=== PATIENT | female | born 1970 | race Caucasian/White ===

== ENCOUNTER → 2020-09-28 09:49 | Outpatient (CLI) | payer OTHER, SELFPAY ==
--- NOTE | ~2020-09-28 | MR_ITS ---
EXAMINATION: MR cervical spine wo con DATE: 09/28/2020 10:32 INDICATION: Cervical radiculopathy. TECHNIQUE: Magnetic resonance imaging (MRI) of the cervical spine was performed without intravenous c ontrast. Sequences included sagittal T2-weighted FSE, sagittal T2-weighted FS FSE, sagittal T1-weight ed FSE, axial MERGE and axial T2-weighted FSE. COMPARISON: Cervical spine radiographs dated 07/08/2012 FINDINGS: Straightening of the normal cervical lordosis. No spondylolisthesis or facet subluxation. Vertebral body heights are normal. Bone marrow signal intensity is normal. Interval progression of moderate di sc height loss at C5-C6 and C6-C7 and mild disc height loss at C4-C5. Cord signal intensity is normal . Cervical soft tissues are unremarkable. The following disc levels are specifically discussed: C2-C3: The disc does not extend beyond the endplate margin. There is no uncovertebral joint osteoarth ritis. There is mild left and moderate right facet joint osteoarthritis. There is no neural foraminal stenosis. There is no central canal stenosis. C3-C4: The disc does not extend beyond the endplate margin. There is mild right and minimal left unco vertebral joint osteoarthritis. There is mild right and moderate left facet joint osteoarthritis. The re is mild left neural foraminal stenosis. There is no central canal stenosis. C4-C5: Disc is bulging. There is moderate bilateral uncovertebral joint osteoarthritis. There is mode rate bilateral facet joint osteoarthritis. There is mild bilateral neural foraminal stenosis. There i s mild central canal stenosis with flattening of the ventral surface of the cord. C5-C6: Eccentric to the right disc bulge with annular fissure. There is moderate left and moderate to severe right uncovertebral joint osteoarthritis. There is mild bilateral facet joint osteoarthritis. There is mild left and moderate right neural foraminal stenosis. There is mild central canal stenosi s with mild indentation of the right ventral surface of the cord. C6-C7: Disc is bulging with annular fissure. There is moderate bilateral uncovertebral joint osteoart hritis. There is mild bilateral facet joint osteoarthritis. There is mild bilateral neural foraminal stenosis. There is mild central canal stenosis with mild flattening of the ventral surface of the cor d. C7-T1: The disc does not extend beyond the endplate margin. There is no uncovertebral joint osteoarth ritis. There is mild bilateral facet joint osteoarthritis. There is no neural foraminal stenosis. The re is no central canal stenosis. IMPRESSION: 1. Moderate cervical spondylosis. Reviewed, dictated and finalized at location B. ICAL THERAPY AIDE
== END ==
PROVIDERS: PCP Family Medicine; Visit Provider Physician Assistant
DX: M47.812 Spondylosis without myelopathy or radiculopathy, cervical region (principal); M25.511 Pain in right shoulder
CPT/HCPCS: 72141

== ENCOUNTER 2021-11-09 05:37 | Emergency (ER) | payer OTHER, SELFPAY ==
--- NOTE | ~2021-11-09 | CT_ITS ---
EXAMINATION: CT brain wo con EXAM DATE: 11/09/2021 06:32 INDICATION: left side headache. Onset 430 a.m. TECHNIQUE: Spiral CT of the head was performed without contrast. Axial, coronal and sagittal images were reviewed. The dose-length product (DLP) for this examination was 605.33 mGy-cm. The exposure w as tailored according to patient size, and iterative reconstruction (ASIR) was used as additional dos e reduction technique. Comparison is made to prior examination from 11/25/2010. FINDINGS: There is no acute intraparenchymal hemorrhage. No evidence of intraparenchymal brain mass lesion. No evidence of acute infarction. There is no mass effect or midline shift. The ventricles are normal in size. There are no extra-axial collections. There are no acute calvarial fractures. T he orbits are unremarkable. Soft tissue is unremarkable. The visualized sinuses and mastoid air rogerio ls are well aerated. IMPRESSION: 1. Normal head CT examination. Reviewed, dictated and finalized at location A. ONS DESIGNER
[2021-11-09 05:42] VITALS: BP 136/85; PULSE 92; RESP 20; TEMP 36.4; O2SAT 100
[2021-11-09 06:01] VITALS: BP 125/86; PULSE 78; RESP 18; O2SAT 98
--- NOTE | 2021-11-09 06:01 | ED.GENADULT ---
HPI - General Adult General Chief complaint: Headache Stated complaint: headache Time Seen by Provider: 11/09/21 05:43 History of Present Illness HPI narrative: Patient is a 51-year-old female presents the emergency department with chief complaint of headache. Patient reports she was on her way to work had sudden onset of left-sided headache. Patient reports she has nausea and vomiting reports that the pain is worse with light and improved with rest and darkness. Patient reports she has prior history of headaches but states this 1 is different and worse than her typical 1. Patient denies fever denies chills denies chest pain denies shortness of breath. Related Data Allergies Allergy/AdvReac Type Severity Reaction Status Date / Time erythromycin base Allergy Mild nausea Verified 11/09/21 05:48 Sulfa (Sulfonamide Allergy Mild Rash Verified 11/09/21 05:48 Antibiotics) codeine Allergy Unknown Skin Verified 11/09/21 05:48 Reaction morphine Allergy Unknown Skin Verified 11/09/21 05:48 Reaction sulfite Allergy Unknown Skin Verified 11/09/21 05:48 Reaction Review of Systems Review of Systems: A 10 system review of systems was completed on the patient and is negative except for what is stated in the HPI. Nursing and ancillary documentation was reviewed. [facility] Past Medical History Medical History Lateral epicondylitis of right elbow [employer] current use of therapeutic drug Obesity Social History Social History Smoking status: Never smoker Alcohol intake: current Substance use: never Substance use type: does not use Gender identity (if verbalized by the patient): Female Exam Narrative: GENERAL: Well-appearing, well-nourished, and in no acute distress. HEAD: Normocephalic, atraumatic. EYES: PERRLA and EOMI. ENT: Nares clear, no rhinorrhea or epistaxis. Mucous membranes moist. NECK: Supple. CHEST: Clear to auscultation. No respiratory distress. HEART: Regular rate and rhythm. No murmur heard. Normal peripheral pulses. ABDOMEN: Soft, nontender, nondistended, normal active bowel sounds. EXTREMITIES: Normal range of motion. No edema. SKIN: Warm, dry, no rash. NEURO: No focal deficits. Alert and oriented x3. PSYCH: Normal mood and affect. Course Vital Signs Vital signs: Vital Signs Temperature 36.4 C 11/09/21 05:42 Pulse Rate 92 11/09/21 05:42 Respiratory Rate 20 11/09/21 05:42 Blood Pressure 136/85 11/09/21 05:42 Pulse Oximetry 100 11/09/21 05:42 Temperature 36.4 C 11/09/21 05:42 Pulse Rate 78 11/09/21 06:01 Respiratory Rate 18 11/09/21 06:01 Blood Pressure 125/86 11/09/21 06:01 Pulse Oximetry 98 11/09/21 06:01 Medical Decision Making Vital Signs Vital Signs: Vital Signs Temperature 36.4 C 11/09/21 05:42 Pulse Rate 92 11/09/21 05:42 Respiratory Rate 20 11/09/21 05:42 Blood Pressure 136/85 11/09/21 05:42 Pulse Oximetry 100 11/09/21 05:42 Temperature 36.4 C 11/09/21 05:42 Pulse Rate 78 11/09/21 06:01 Respiratory Rate 18 11/09/21 06:01 Blood Pressure 125/86 11/09/21 06:01 Pulse Oximetry 98 11/09/21 06:01 Discharge Plan Discharge Clinical Impression: Headache Qualifiers: Headache type: unspecified Headache chronicity pattern: acute headache Intractability: not intractable Qualified Code(s): R51.9 - Headache, unspecified Patient Disposition: Home, Self-Care Condition: Stable Instructions: Antibiotic Form, Acute Headache (ED) Prescriptions: No Action alprazolam [Xanax] 0.25 mg tablet 0.25 mg PO TID PRN (Reason: anxiety) Qty: 30 RF: 0 valacyclovir [Valtrex] 1 gram tablet 2,000 mg PO .COMPLEX Qty: 20 RF: 0 escitalopram oxalate 10 mg tablet 10 mg PO DAILY Qty: 90 RF: 3 Hold Instructions: dec dose to 5mg x1w then stop estradiol 1 mg tablet
[2021-11-09] MEDS: PROCHLORPERAZINE EDISYLATE 10 MG/2 ML VIAL IV PUSH (06:09)
[2021-11-09] MEDS: diphenhydrAMINE HCl INJ 50 MG/ML VIAL IV PUSH (06:12)
[2021-11-09] MEDS: SODIUM CHLORIDE 0.9% IV 1,000 ML 999 ML IV CONT (06:13)
[2021-11-09] MEDS: KETOROLAC 30 MG/ML VIAL (*BKC) IV PUSH (06:14)
[2021-11-09 06:16] VITALS: BP 120/82; PULSE 80; RESP 12; O2SAT 97
--- NOTE | 2021-11-09 06:18 | PC.NURSE ---
Pt to CT at this time.
[2021-11-09 06:31] VITALS: BP 109/73; PULSE 58; RESP 13; O2SAT 97
[2021-11-09 07:53] VITALS: BP 116/89; PULSE 72; RESP 18; O2SAT 100
== END 2021-11-09 08:01 | disposition home or self-care (01) ==
PROVIDERS: Emergency Provider Emergency Medicine; PCP Family Medicine
DX: R51.9 Headache, unspecified (principal); E66.9 Obesity, unspecified; Z68.31 Body mass index [BMI] 31.0-31.9, adult
CPT/HCPCS: 70450; 96361; 96374; 96375; 99284; J0780; J1200; J1885; J7030

== ENCOUNTER 2022-04-13 14:16 | Outpatient (CLI) | payer OTHER, SELFPAY ==
--- NOTE | ~2022-04-13 | XR_ITS ---
EXAMINATION: XR chest 2V 04/13/2022 14:49 INDICATION: Pneumonia PROCEDURE: 2 view chest COMPARISON: 02/23/2011 FINDINGS: The lungs are clear. The cardiomediastinal silhouette is within normal limits. There are no pleural effusions. There is no pneumothorax suspected. IMPRESSION: 1: NO ACUTE CARDIOPULMONARY DISEASE. Reviewed, dictated and finalized at location A.
[2022-04-13 15:06] LABS: Basophils Absolute Auto 0.1 K/mm3 (0.0-0.1); Basophils Percent Auto 0.9 % (0.2-1.2); Eosinophils Absolute Auto 0.2 K/mm3 (0-0.3); Eosinophils Percent Auto 2.3 % (0-4.4); Hematocrit 39.8 % (37.0-47.0); Hemoglobin 12.8 g/dL (12.0-15.0); Immature Granulocyte Absolute 0.02 K/mm3 (0.00-0.031); Immature Granulocyte Percent A 0.3 % (0-0.5); Lymphocytes Absolute Auto 1.59 K/mm3 (0.9-3.2); Lymphocytes Percent Auto 20.5 % (18.3-44.2); Mean Corpuscular HGB Conc 32.2 g/dl (32-36); Mean Corpuscular Hemoglobin 30.3 pg (26-34); Mean Corpuscular Volume 94.1 fl (80-100); Monocytes Absolute Auto 0.5 K/mm3 (0.1-0.6); Monocytes Percent Auto 6.6 % (2.6-8.5); Neutrophils Absolute Auto 5.4 K/mm3 (1.3-6.7); Neutrophils Percent Auto 69.4 % (45.5-73.1); Platelet Count Result 256 k/mm3 (150-375); Red Blood Count 4.23 M/mm3 (4.2-5.4); Red Cell Distribution Width 13.8 % (11.5-14.5); White Blood Count 7.8 K/mm3 (4.5-10.0)
[2022-04-13 15:23] LABS: Alanine Aminotransferase 27 U/L (6-35); Albumin Level 4.4 g/dL (3.5-5.1); Alkaline Phosphatase 65 U/L (38-126); Anion Gap 5 mmol/L (8-16); Aspartate Amino Transferase 27 U/L (14-36); Bilirubin,Total 0.3 mg/dL (0.2-1.3); Blood Urea Nitrogen 11 mg/dL (7-17); Calcium 9.3 mg/dL (8.4-10.2); Carbon Dioxide 29 mmol/L (22-30); Chloride 105 mmol/L (98-107); Estimated Glomerular Filt Rate > 60; Glucose 89 mg/dL (65-110); Sodium 139 mmol/L (137-145)
== END 2022-04-13 14:17 | disposition home or self-care (01) ==
PROVIDERS: PCP Family Medicine; Visit Provider Family Medicine
DX: J18.9 Pneumonia, unspecified organism (principal); Z51.81 Encounter for therapeutic drug level monitoring; Z79.899 Other long term (current) drug therapy
CPT/HCPCS: 36415; 71046; 80053; 84443; 85025

== ENCOUNTER 2023-07-06 12:36 | Outpatient (CLI) | payer OTHER, SELFPAY ==
[2023-07-06 17:48] LABS: Thyroid Stimulating Hormone 0.319 uIU/mL (0.465-4.680)
[2023-07-11 06:38] LABS: Triiodothyronine T3 Free 3.4 pg/mL (2.3-4.2)
== END 2023-07-06 12:37 | disposition home or self-care (01) ==
LOC: ANHGOSHLAB 12:41
PROVIDERS: PCP Family Medicine; Visit Provider Nurse Practitioner Family
DX: E66.9 Obesity, unspecified (principal); Z79.899 Other long term (current) drug therapy; E03.9 Hypothyroidism, unspecified
CPT/HCPCS: 36415; 84443; 84481

== ENCOUNTER 2023-11-02 12:26 | Outpatient (CLI) | payer OTHER, SELFPAY ==
[2023-11-02 19:13] LABS: Basophils Absolute Auto 0.1 K/mm3 (0.0-0.1); Basophils Percent Auto 1.2 % (0.2-1.2); Eosinophils Absolute Auto 0.2 K/mm3 (0-0.3); Eosinophils Percent Auto 1.9 % (0-4.4); Hematocrit 43.3 % (37.0-47.0); Hemoglobin 13.6 g/dL (12.0-15.0); Immature Granulocyte Absolute 0.02 K/mm3 (0.00-0.031); Immature Granulocyte Percent A 0.3 % (0-0.5); Lymphocytes Absolute Auto 1.61 K/mm3 (0.9-3.2); Lymphocytes Percent Auto 20.9 % (18.3-44.2); Mean Corpuscular HGB Conc 31.4 g/dl (32-36); Mean Corpuscular Hemoglobin 30.5 pg (26-34); Mean Corpuscular Volume 97.1 fl (80-100); Mean Platelet Volume 11.5 fl (7.4-10.4); Monocytes Absolute Auto 0.5 K/mm3 (0.1-0.6); Monocytes Percent Auto 6.7 % (2.6-8.5); Neutrophils Absolute Auto 5.3 K/mm3 (1.3-6.7); Platelet Count Result 248 k/mm3 (150-375); Red Blood Count 4.46 M/mm3 (4.2-5.4); Red Cell Distribution Width 13.4 % (11.5-14.5); White Blood Count 7.7 K/mm3 (4.5-10.0)
[2023-11-02 19:25] LABS: Alanine Aminotransferase 59 U/L (6-35); Albumin Level 4.6 g/dL (3.5-5.1); Alkaline Phosphatase 64 U/L (38-126); Anion Gap 5 mmol/L (8-16); Aspartate Amino Transferase 57 U/L (14-36); Bilirubin,Total 0.6 mg/dL (0.2-1.3); Blood Urea Nitrogen 15 mg/dL (7-17); Calcium 9.7 mg/dL (8.4-10.2); Carbon Dioxide 32 mmol/L (22-30); Chloride 102 mmol/L (98-107); Cholesterol 215 mg/dL (0-200); Estimated Glomerular Filt Rate > 60; Glucose 87 mg/dL (65-110); HDL Direct 58 mg/dL; Sodium 139 mmol/L (137-145); Triglycerides 94 mg/dL (<150)
[2023-11-02 19:36] LABS: LDL Cholesterol Direct 115 mg/dL
[2023-11-02 19:40] LABS: Vitamin D 25 Hydroxy 44.6 ng/mL
[2023-11-02 19:57] LABS: Appearance Urine Cloudy (Clear); Bacteria Urine None Seen /hpf; Bilirubin Urine Negative (Negative); Blood Urine 2+ (Negative); Color Urine Yellow (Yellow); Glucose Urine UA Negative (Negative); Ketones Urine Negative (Negative); Leukocyte Esterase Ur 2+ LEU/UL (NEGATIVE); Nitrate Urine Negative (Negative); Non Pathogenic Casts 0-2; Protein Urine Trace mg/dL (Negative); Specific Grav Ur 1.022 (1.001-1.035); Squamous Epithelial Cell Urine Occasional /hpf (Few); Urobilinogen Urine 0.2 mg/dL (<2.0); WBC Urine >100 /hpf (0-3); pH Urine 5.5 (5.0-9.0)
[2023-11-02 20:00] LABS: Add Urine Microscopic? YES
== END 2023-11-02 12:27 | disposition home or self-care (01) ==
PROVIDERS: PCP Family Medicine; Visit Provider Nurse Practitioner Family
DX: E03.9 Hypothyroidism, unspecified (principal); E55.9 Vitamin D deficiency, unspecified; E66.9 Obesity, unspecified; R53.83 Other fatigue; Z79.899 Other long term (current) drug therapy
CPT/HCPCS: 36415; 80053; 80061; 81001; 82306; 84443; 85025

== ENCOUNTER 2024-02-27 09:53 | Emergency (ER) | payer OTHER, SELFPAY ==
[2024-02-27 10:07] VITALS: BP 121/89; PULSE 88; RESP 18; TEMP 36.6; O2SAT 100
--- NOTE | 2024-02-27 10:49 | ED.GENADULT ---
HPI - General Adult General Chief complaint: Skin/Abscess/Foreign Body Stated complaint: facial, neck, lip swelling Time Seen by Provider: 02/27/24 10:29 History of Present Illness HPI narrative: Kalani Jaramillo is a 53 y/o female who presents with reports of noticing an itchy red rash to her neck yesterday at around 1600 she states she took two benadryl and went to bed. She states that she woke up today an noticed that the rash has moved to her lips. She states that her lips are red/ burning / itching and feel swollen. Unsure of known irritant/ denies any new medications/ not on scarlet inhibitors/ denies any new products or soaps. Denies SOB/ throat swelling difficulty swallowing Related Data Allergies Allergy/AdvReac Type Severity Reaction Status Date / Time erythromycin base Allergy Mild nausea Verified 11/02/23 11:02 Sulfa (Sulfonamide Allergy Mild Rash Verified 11/02/23 11:02 Antibiotics) codeine Allergy Unknown Skin Verified 11/02/23 11:02 Reaction morphine Allergy Unknown Skin Verified 11/02/23 11:02 Reaction sulfite Allergy Unknown Skin Verified 11/02/23 11:02 Reaction Review of Systems Review of Systems: All systems reviewed & are unremarkable except as noted in HPI and below PMFSH Past Medical History Medical History COVID-19 Lateral epicondylitis of right elbow senior living current use of therapeutic drug Obesity Surgical History Surgical History Hx of breast reduction, elective Social History Social History Smoking status: Never smoker Alcohol intake: current Substance use: never Substance use type: does not use Gender identity (if verbalized by the patient): Female Exam Narrative: GENERAL: Well-appearing, well-nourished, and in no acute distress. HEAD: Normocephalic, atraumatic. EYES: PERRLA and EOMI. ENT: Nares clear, no rhinorrhea or epistaxis. Mucous membranes moist. Oropharynx without tonsillar hypertrophy exudate or other lesions. NECK: Supple. No adenopathy or masses. No carotid bruits or JVD CHEST: Clear to auscultation. No respiratory distress. No wheezes rales or rhonchi HEART: Regular rate and rhythm. No murmur heard. Normal peripheral pulses. ABDOMEN: Soft, nontender, nondistended, normal active bowel sounds. EXTREMITIES: Normal range of motion. No edema. SKIN: Warm, dry, red blanchable rash to her neck and going up towards her lips NEURO: No focal deficits. Alert and oriented x3. PSYCH: Normal mood and affect. Course Vital Signs Vital signs: Vital Signs Temperature 36.6 C 02/27/24 10:07 Pulse Rate 88 02/27/24 10:07 Respiratory Rate 18 02/27/24 10:07 Blood Pressure 121/89 02/27/24 10:07 Pulse Oximetry 100 02/27/24 10:07 Oxygen Delivery Room Air 02/27/24 10:07 Temperature 36.6 C 02/27/24 13:08 Pulse Rate 76 02/27/24 13:08 Respiratory Rate 16 02/27/24 13:08 Blood Pressure 127/79 02/27/24 13:08 Pulse Oximetry 98 02/27/24 13:08 Oxygen Delivery Room Air 02/27/24 10:07 Medical Decision Making [facility] Narrative Medical decision making narrative: 53 y/o presents with allergic reaction that started yesterday took one dose of PO benadryl yesterday at 1600 and woke up today and felt like the redness/ is going up to her lips itchy burning feeling Oral airway intact No strider noted Lung sounds clear RR even unlabored sating 100% on RA No vesicles noted to be concerned for shingles Concern for : allergic reaction/ contact derm Plan to start IV Benadryl/ dexamethasone / Famotidine / NS bolus and Ketorolac for the burning pain - and monitor for improvement vs worsening symptoms discussed this plan with pt and she verbalizes understanding and agreement. Patient medicated and monitored for over 2 hours, Patient re-evaluated at around 1322 - the
[2024-02-27 10:54] VITALS: BP 107/81; RESP 16; O2SAT 100
[2024-02-27] MEDS: SODIUM CHLORIDE 0.9% IV 1,000 ML 999 ML IV CONT (10:58)
[2024-02-27] MEDS: FAMOTIDINE 20 MG/2 ML VIAL IV PUSH (10:59)
[2024-02-27] MEDS: diphenhydrAMINE HCl INJ 50 MG/ML VIAL IV PUSH (10:59)
[2024-02-27] MEDS: dexAMETHasone SOD PHOS INJ 10 MG/ML 1 ML VIAL IV PUSH (10:59)
[2024-02-27 11:31] LABS: Basophils Absolute Auto 0.1 K/mm3 (0.0-0.1); Eosinophils Absolute Auto 0.1 K/mm3 (0-0.3); Eosinophils Percent Auto 2.7 % (0-4.4); Hematocrit 38.2 % (37.0-47.0); Hemoglobin 12.3 g/dL (12.0-15.0); Immature Granulocyte Absolute 0.01 K/mm3 (0.00-0.031); Immature Granulocyte Percent A 0.2 % (0-0.5); Lymphocytes Absolute Auto 1.18 K/mm3 (0.9-3.2); Lymphocytes Percent Auto 22.4 % (18.3-44.2); Mean Corpuscular HGB Conc 32.2 g/dl (32-36); Mean Corpuscular Hemoglobin 30.8 pg (26-34); Mean Corpuscular Volume 95.7 fl (80-100); Mean Platelet Volume 11.1 fl (7.4-10.4); Monocytes Absolute Auto 0.4 K/mm3 (0.1-0.6); Monocytes Percent Auto 7.4 % (2.6-8.5); Neutrophils Absolute Auto 3.5 K/mm3 (1.3-6.7); Neutrophils Percent Auto 66.3 % (45.5-73.1); Platelet Count Result 209 k/mm3 (150-375); Red Blood Count 3.99 M/mm3 (4.2-5.4); Red Cell Distribution Width 13.1 % (11.5-14.5); White Blood Count 5.3 K/mm3 (4.5-10.0)
[2024-02-27] MEDS: KETOROLAC 30 MG/ML VIAL (*BKC) IV PUSH (11:39)
[2024-02-27 11:43] VITALS: BP 120/80; PULSE 75; RESP 16; TEMP 36.5; O2SAT 98
--- NOTE | 2024-02-27 11:43 | PC.NURSE ---
assumed care of pt from velma snider. pt resting on stretcher, in mild pain. pt has toradol ordered and rn will administer
[2024-02-27 11:53] LABS: Anion Gap 3 mmol/L (4-12); Blood Urea Nitrogen 13 mg/dL (7-17); Calcium 8.6 mg/dL (8.4-10.2); Carbon Dioxide 28 mmol/L (22-30); Chloride 110 mmol/L (98-107); Estimated CRCL calculation 77 ml/min; Estimated Glomerular Filt Rate > 60; Glucose 77 mg/dL (65-110); Sodium 141 mmol/L (137-145)
[2024-02-27 13:08] VITALS: BP 127/79; PULSE 76; RESP 16; TEMP 36.6; O2SAT 98
[2024-02-27 13:38] VITALS: BP 119/82; PULSE 71; RESP 16; TEMP 36.6; O2SAT 98
== END 2024-02-27 13:39 | disposition home or self-care (01) ==
PROVIDERS: Emergency Provider Nurse Practitioner Family; PCP Family Medicine
DX: T78.40XA Allergy, unspecified, initial encounter (principal)
CPT/HCPCS: 36415; 80048; 85025; 96361; 96374; 96375; 99284; J1100; J1200; J1885; J7030

== ENCOUNTER 2025-04-03 10:48 | Outpatient (CLI) | payer OTHER, SELFPAY ==
--- NOTE | ~2025-04-03 | MR_ITS ---
MRI of the right knee Clinical history: Pain Technique: Coronal proton density and proton density-weighted images, sagittal proton-density and T2 fat-sat images, and axial proton-density fat-saturated images were acquired. Findings: Anterior and posterior cruciate ligaments are intact. Medial collateral ligament and the la teral collateral ligament complex are intact. Popliteus tendon is intact. There is large horizontal/oblique tear of the posterior horn of the medial meniscus extending to the body segment. No lateral meniscal tear seen. 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 There is moderate to high-grade chondromalacia th e medial compartment. There is mild chondral thinning in the lateral compartment. Small osteophytes a re present with any. Extensor mechanism is intact. Small joint effusion present. No Albert's cyst. Impression: Large horizontal/oblique tear of the posterior horn and body of the medial meniscus. 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 Small joint effusion. Reviewed, dictated and finalized at location . Impression: Large horizontal/oblique tear of the posterior horn and body of the medial meni scus. 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 Small joint effusion.
== END 2025-04-03 10:49 | disposition home or self-care (01) ==
PROVIDERS: PCP Family Medicine; Visit Provider Orthopaedic Surgery
DX: S83.241A Other tear of medial meniscus, current injury, right knee, initial encounter (principal); M22.41 Chondromalacia patellae, right knee; M25.461 Effusion, right knee
CPT/HCPCS: 73721

== ENCOUNTER 2025-04-22 00:16 | Day surgery (SDC) | payer OTHER, SELFPAY ==
--- NOTE | 2025-04-14 13:16 | SUR.PREOP ---
Report to the Outpatient Waiting Room, entrance under the green pavilion located off [address], at time _0630_ on date _04/22/2025_. Planned Procedure Time: _0830_.? Time changes happen often and if your time is changed the preop area will call you the afternoon before. - You and your visitor will be asked to self-screen and do not enter if you have any COVID symptoms. Please call surgeon if you need to reschedule. - A mask is optional within the hospital at this time. Patients may have clear liquids (water, carbonated beverages, clear teas, apple juice) until 3 hours (0530) prior to surgery with a maximum of 20 ounces. - No food from midnight until time of surgery and no smoking, or chewing tobacco (or any form of nicotine). No chewing gum, candy or mints. Take only the following medications with a SIP of water on the morning of surgery: _BUPROPION, ESTRADIOL, LEVOTHYROXINE_ DO NOT STOP ANY OF YOUR OTHER PRESCRIPTION MEDICATIONS PRIOR TO SURGERY EXCEPT THE FOLLOWING Hold all vitamins and supplements for 3 days per anesthesiologist. Medications to discontinue per physician _SEMAGLUTIDE_ Date to take last dose_STOP NOW_ Please no make-up, nail faroese, hairspray, perfume, deodorant, or body powder the day of surgery.? No jewelry (including any body piercings) or valuables the day of surgery, leave them at home.? Please take a shower or bath the night before, or the morning of, surgery with an antibacterial soap.? Wear comfortable, loose fitting clothing. - Jewelry must be removed prior to entering the operating room.? Rings and piercings that are not removed may be cut off. - The hospital will not accept responsibility for valuables.? - Please leave all valuables, including medications, at home the day of surgery. If you are going home after surgery, a licensed river driver must drive you home.? - NO public transportation without another adult if you receive anesthesia. - We recommend that an adult stay with you for 24 hours following discharge. - We also recommend that you do not drive, make important decision, drink alcoholic beverages, or take any drugs that were not prescribed by your health care provider for at least 24 hours after your discharge time. Follow any additional instructions given to you from your surgeon. Telephone instructions given to _KIM_and asked if any additional questions and then verbalized understanding. Patient advised to call surgeon office or pre surgery nurse liaison [phone] if any additional questions.
[2025-04-14 13:26] VITALS: BMI 26.6
--- NOTE | 2025-04-21 07:13 | P.HP_ITS ---
H&P: HPI History of Present Illness Date/Time: 04/21/25 07:13 Chief Complaint: Patient is knee pain and catching right knee. She has mechanical-type symptoms failed conservative treatment. She has an MRI scan that demonstrates a meniscal tear. She would like to proceed with arthroscopic intervention. 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 Surgical History Surgical History Hx of breast reduction, elective Family History Family History Father TIA (transient ischemic attack) Grandparent DVT (deep venous thrombosis) Social History Social History Smoking packs per day: 1 Smoking cigarettes per day: 20.0 Years smoked: 12 Smoking pack-years: 12.00 Smoking status: Former smoker Tobacco type: cigarettes Second hand tobacco smoke exposure: No Smoking end date: 10/15/18 Alcohol intake: current Alcohol use details: SOCIALLY (ONCE EVERY FEW MONTHS) Substance use: never Substance use type: does not use Do You Feel Safe in your Home?: Yes Lack of Transportation: No Lack of Food: Never True Current Housing: I Have Housing Concerned About Future Housing: No Difficulty Paying Gas/Electric Bills: No Difficulty Paying for Meds: No Currently Unemployed: No Education: Associate Degree Difficulty w/ Childcare or Family Care: No Living arrangements: with family Additional living arrangements comments: Gender identity (if verbalized by the patient): Female Spiritual care concerns: No Meds Home Medications and Allergies Home Medications ?Medication ?Instructions ?Recorded ?Confirmed ?Type bupropion HCl 300 mg 24 hr tablet, 300 mg PO QAM #90 tabs 11/02/23 04/14/25 Rx extended release (Wellbutrin XL) sumatriptan succinate 25 mg tablet See Rx Instructions PO .COMPLEX #9 11/02/23 04/14/25 Rx (Imitrex) tabs sumatriptan succinate 4 mg/0.5 mL 4 mg (0.5 mL) subcut ONCE #14 mL 03/17/24 04/14/25 Rx subcutaneous cartridge (refill) sumatriptan succinate 4 mg/0.5 mL 4 mg (0.5 mL) subcut ONCE #1 mL 03/17/24 04/14/25 Rx subcutaneous pen injector ubrogepant 100 mg tablet (Ubrelvy) 100 mg PO ONCE #14 tabs 03/17/24 04/14/25 Rx cetirizine 10 mg tablet (Zyrtec) 10 mg PO DAILY PRN allergy symptoms 10/22/24 04/14/25 History estradiol 1 mg tablet 1 mg PO DAILY #30 tabs 01/30/25 04/14/25 Rx escitalopram oxalate 10 mg tablet 10 mg PO DAILY #90 tabs 02/24/25 04/14/25 Rx levothyroxine 200 mcg tablet 200 mcg PO DAILY #90 tabs 02/24/25 04/14/25 Rx levothyroxine 25 mcg tablet 25 mcg PO DAILY #90 tabs 02/24/25 04/14/25 Rx alprazolam 0.25 mg tablet 0.25 mg PO TID PRN anxiety #30 tabs 04/10/25 04/14/25 Rx semaglutide 0.25 mg or 0.5 mg (2 0.5 mg subcut WEEKLY 04/14/25 04/14/25 History mg/1.5 mL) subcutaneous pen injector (Ozempic) valacyclovir 1 gram tablet 1,000 mg PO Q8H PRN SORES #21 tabs 04/15/25 Rx (Valtrex) Allergies Allergy/AdvReac Type Severity Reaction Status Date / Time codeine Allergy Severe Difficulty Verified 04/14/25 13:27 Breathing erythromycin base Allergy Mild nausea Verified 04/14/25 13:27 Sulfa (Sulfonamide Allergy Mild Rash Verified 04/14/25 13:27 Antibiotics) morphine Allergy Unknown Skin Verified 04/14/25 13:27 Reaction sulfite Allergy Unknown Skin Verified 04/14/25 13:27 Reaction Exam Narrative: On exam she has catching locking and pain of the RIGHT knee medially. She has a positive Cameron's maneuver. She has mechanical-type symptoms. Neurologically she is intact. She walks with an antalgic gait. Eyes: General: appearance normal, both eyes and all related structures Neck: Neck: supple Resp: Effort & Inspection: normal respiratory effort Cardio: Rate: regular rate Rhythm: regular rhythm Radiology Reports: Comments: Magnetic Resonance Report Signed Patient: Kalani Jaramillo MRI of the right knee Clinical history: Pain Technique: Coronal proton density and proton density-weighted images, sagittal proton-density and T2 fat-sat images, and axial proton-density fat-saturated images were acquired. Findings: Anterior and posterior cruciate ligaments are intact. Medial collateral ligament and the lateral collateral ligament complex are intact. Popliteus tendon is intact. There is large horizontal/oblique tear of the posterior horn of the medial meniscus extending to the body segment. No lateral meniscal tear seen. 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 There is moderate to high- grade chondromalacia the medial compartment. There is mild chondral thinning in the lateral compartment. Small osteophytes are present with any. Extensor mechanism is intact. Small joint effusion present. No Albert's cyst. Impression: Large horizontal/oblique tear of the posterior horn and body of the medial meniscus. 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 Small joint effusion. Reviewed, dictated and finalized at location . Electronically signed by Eduardo Faustin M.D. on 04/03/ Knee MRI 04/03/25 Cervical Spine MRI 09/28/20 Assessment and Plan Assessment and plan (1) Acute medial meniscus tear of right knee: Code(s): S83.241A - Other tear of medial meniscus, current injury, right knee, initial encounter Status: Acute Assessment and Plan: Patient has a medial meniscal tear right knee. She has failed conservative treatment. She would like to consider arthroscopic intervention. I discussed the risks, benefits, limitations, and alternatives with the patient in detail. She understands and agrees will proceed per her request.
[2025-04-22] VITALS (11 sets, daily range): BP systolic 113–133; BP diastolic 68–93; PULSE 59–73; RESP 10–19; TEMP 36.6–37.3; O2SAT 92–100
--- OUTSIDE RECORDS SUMMARY | 2025-04-22 00:21 | XMS_ITS | Clinical Summary ---
Author Organization [email or web address] Address [address] [place] [address] Care Team Providers Care Powder Coater Name Role Phone Meño Redman MD Primary Care Provider [phone] Source Comments [email or web address],non-owned Affiliates and Associated Physician Practices is amultiple site organization consisting of ambulatory clinics and hospital sitesin [place], [place], [place] and [place]. This disclosure is being madepursuant to the Care Everywhere program and may not contain all information available regarding this patient. Last updated 18.[email or web address] Allergies Active Allergy Reactions Criticality Noted Date Comments Codeine GI Discomfort 03/02/2018 Erythromycin GI Discomfort 03/02/2018 Morphine Itching 02/20/2012 Sulfa Drugs GI Discomfort 02/20/2012 Medications * Be aware that medications may not be up to date on this document. Alwaysverify current medications with the patient. levothyroxine (SYNTHROID) 200 MCG tablet Take 200 mcg by mouth daily before breakfast. 1 tab daily Active escitalopram (LEXAPRO) 20 MG tablet Take 20 mg by mouth at bedtime Active buPROPion XL 24hr (WELLBUTRIN XL) 300 MG tablet Take 300 mg by mouth every morning Activ e estradiol (ESTRACE) 1 MG tablet Take 2 mg by mouth once daily Active diphenhydramin e 12.5mg/ml, 30ml,; visc lidocaine 2%, 30ml,; maalox, 30ml, (MIRACLE MOUTHWASH) SUSPIndication s:Nasopharyngi tis acute 1:1:1 solution of viscous lidocaine 2%, Maalox, diphenhydramine 12.5mg/5ml elixir 90 mL 03/02/20 18 Active benzonatate (TESSALON) 200 MG capsuleIndicat ions:Nasophary ngitis acute Take 1 capsule by mouth 3 times daily as needed for Cough 30 capsule 03/02/20 18 Active Active Problems Problem Noted Date Diagnosed Date Post-menopausal 02/21/2012 Hypothyroidism 02/21/2012 Migraine 02/21/2012 Family History Medical History Relation Name Comments CVA Father Cancer - Prostate Father Hypertension Father Phlebitis/Blood Clot Father Colon polyps Mother diverticulitis Phlebitis/Blood Clot Paternal Grandmother Relation Name Status Comments Father Mother Paternal Grandmother Social History Tobacco Use Types Packs/Day Years Used Date Smoking Tobacco: Never Smokeless Tobacco: Never Alcohol Use Standard Drinks/Week Comments No 0 (1 standard drink = 0.6 oz pur e alcohol) Comments No Sex and Gender Information Value Date Recorded Sex Assigned at Not on file 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 Gender Identity Not on file Sexual Orientation Not on file Last Filed Vital Signs Vital Sign Reading Time Taken Comments Blood Pressure 112/74 03/02/2018 3:34 PM CDT Pulse 76 03/02/2018 3:34 PM CDT Temperature 37 C (98.6 F) 03/02/2018 3:34 PM CDT Respiratory Rate 16 03/02/2018 3:34 PM CDT Oxygen Saturation 98% 03/02/2018 3:34 PM CDT Inhaled Oxygen Concentration - - Weight 86.2 kg (190 lb) 03/02/2018 3:34 PM CDT Height 162.6 cm (5' 4) 03/02/2018 3:34 PM CDT Body Mass Index 32.61 03/02/2018 3:34 PM CDT Plan of Treatment Health Maintenance Due Date Last Done Comments COLOGUARD (AGES 45-75) - COL ON CA SCREENING 1972 COLON MONITORING 1972 COLONOSCOPY - COLON CA SCREENING 1972 CT COLONOGRAPHY - COLON CA SCREENING 1972 Colorectal Cancer Screening 1972 FIT - COLON CA SCREENING 1972 FLEX SIG - COLON CA SCREENING 1972 LIPID TESTING 1972 MAMMOGRAM 1972 HIV SCREENING 1987 HEPATITIS C SCREENING 05/19/1990 DTAP/TDAP/TD VACCINES (1 - Tdap) 1991 HEPATITIS B VACCINE (1 of 3 - 19+ 3-dose series) 1991 SCREENING FOR DIABETES 03/02/2018 PNEUMOCOCCAL VACCINE 50+ (1 of 1 - PCV) 2022 ZOSTER VACCINE (1 of 2) 2022 COVID-19 VACCINE (1 - 2023-2 5 season) 2024 DEPRESSION SCREENING 10/15/2024 INFLUENZA VACCINE (Season Ended) 2025 HIB VACCINE Aged Out No longer eligi ble based on patient's age to complete this topic HPV VACCINE Aged Out No longer eligi ble based on patient's age to complete this topic MENINGOCOCCAL (Group B) VACC INE SHARED DECISION-MAKING Aged Out No longer eligibl e based on patient's age to complete this topic MENINGOCOCCAL GROUPS A/C/Y/W VACCINE Aged Out No longer eligible b ased on patient's age to complete this topic Insurance Care Teams Powder Coater Relationship Specialty Start Date End Date Meño Redman MD [address] [place] [id number] PCP - General Family Medicine 03/02/18
--- OUTSIDE RECORDS SUMMARY | 2025-04-22 00:21 | XMS_ITS | Clinical Summary ---
Author Organization [facility] [place] [facility] Address [address] [place] [address] Care Team Providers Care Swatcher Name Role Phone Meño Redman MD Primary Care Provider [phone] Meño Redman MD Unavailable [phone] Allergies Active Allergy Reactions Criticality Noted Date Comments Codeine Stomach upset Low 03/02/2018 Erythromycin Stomach upset Low 03/02/2018 Morphine Hives,Itching,Other (See comments) Medium 02/20/2012 Reaction: Itching, Sulfa (Sulfonamide Antibiotics) Sulfanilamide Sulfasalazine Stomach upset Low 02/20/2012 Tetracyclines Other (See comments) Low Reaction: Vomiting, Medications levothyroxine (SYNTHROID) 25 mcg tablet take 1 tablet (25MCG) by oral route every day 0 1 Active Additional Information Patient taking differently: 200 mcg oral Daily, Indications: hypothyroidism, Reported on 10/06/2018 buPROPion XL (WELLBUTRIN XL) 300 mg 24 hr tablet Take 300 mg by mouth. Active LORazepam (ATIVAN) 0.5 mg tablet Take 1 tablet (0.5 mg total) by mouth 3 (three) times a day as needed (Spasms/abdomina l spasms). 20 tablet 8 Active estradioL (ESTRACE) 1 mg tablet Take 2 mg by mouth daily Active gabapentin (NEURONTIN) 300 mg capsule Take 1 capsule (300 mg total) by mouth 3 (three) times a day 90 capsule 11 1 Active Active Problems Problem Noted Date Diagnosed Date RUQ pain 10/07/2018 Nausea and vomiting 10/07/2018 Common migraine with intractable migraine 2013 Overview (01/18/2017): COMN MGRN W NTRC MGR STD Hypothyroidism 02/28/2014 Overview (01/19/2017): HYPOTHYROIDISM NOS Encounters Date Type Department Care Team Description 03/17/2025 9:45 AM CDT - 03/17/2025 11:59 PM CDT Hospital Encounter [facility] [address] [place] [address] Right knee pain, unspecified chronicity Discharge Disposition: Discharge to home or self care from Last 3 Months Immunizations Immunization Administration Dates Next Due Influenza, Unspecified 08/15/2020 Surgical History Surgery Date Site/Laterality Comments HYSTERECTOMY Hysterectomy CARPAL TUNNEL RELEASE Carpal tunnel release WRIST SURGERY Left Medical History Medical History Date Comments Disorder of thyroid Thyroid dise ase Depression Dermatitis Hypothyroidism Neck pain Smoking Quit in 2005 Family History Medical History Relation Name Comments Hypertension Father Hypertension; Migraines Father Migraine; Prostate cancer Father Cancer, pros greenberg; Cancer Maternal Grandfather Cancer, unknown; Diabetes Maternal Grandfather Diabete s mellitus; Heart disease Maternal Grandfather Heart disease; Depression Mother Depression; Diabetes type II Other Family hist ory of Diabetes -Type II; Breast cancer Neg Hx Endometrial cancer Neg Hx Ovarian cancer Neg Hx Thyroid cancer Neg Hx Relation Name Status Comments Father Maternal Grandfather Mother Other Social History Tobacco Use Types Packs/Day Years Used Date Smoking Tobacco: Former Smokeless Tobacco: Never Tobacco Cessation:Counseling Given: No Alcohol Use Standard Drinks/Week Comments No 0 (1 standard drink = 0.6 oz pur e alcohol) AUDIT-C Answer Date Recorded Q1: How often do you have a drink containing alc ohol? Monthly or less 12/10/2020 Q2: How many drinks containi ng alcohol do you have on a typical day when you are drinking? 1 or 2 12/10/2020 Q3: How often do you have si x or more drinks on one occasion? 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 Gender Identity Female 11/18/2020 10:29 PM TALENT RECRUITER Sexual Orientation Not on file Obstetrics History Para Term AB IAB SAB Ectopic Multiple Livin g Live Births 5 4 4 Date Outcome GA Total Labor Labor/2nd/3rd Weight Sex Type Anes PTL Solange A1 A5 Name Clin Term Term Term Term Last Filed Vital Signs Vital Sign Reading Time Taken Comments Blood Pressure 113/66 11/19/2020 3:19 PM TALENT RECRUITER Pulse 84 11/19/2020 3:19 PM TALENT RECRUITER Temperature 36.6 C (97.8 F) 11/19/2020 1:09 PM TALENT RECRUITER Respiratory Rate 18 11/19/2020 3:19 PM TALENT RECRUITER Oxygen Saturation 100% 11/19/2020 3:19 PM TALENT RECRUITER Inhaled Oxygen Concentration - - Weight 87.1 kg (192 lb) 11/19/2020 1:09 PM TALENT RECRUITER Height 162.6 cm (5' 4) 11/19/2020 1:09 PM TALENT RECRUITER Body Mass Index 32.96 11/19/2020 1:09 PM TALENT RECRUITER Plan of Treatment Health Maintenance Due Date Last Done Comments Depression Screening 1972 DTaP/Tdap/Td Vaccine (1 - Tdap) 1983 Hepatitis B Screening 1990 Regular Well Visit/Exam 18-64 1990 Zoster Vaccine (1 of 2) 2022 Colon Cancer Screening-Colonoscopy 02/24/2023 02/24/2013 Breast Cancer Screening-Mammogram 09/22/2023 09/22/2022, 08/25/2021, 06/24/2019, Additional history exists Influenza Vaccine (Season Ended) 2025 08/15/2020 Hepatitis C Screening Completed 02/03/2013, 013 Pneumococcal vaccine <65 Aged Out No longer eligible based on patient's age to complete this topic Goals Goal Patient Goal Type Associated Problems Recent Progress Patient-Stated? Author CCM Chronic Pain Care Plan Chronic Care Management Syl Carlson, DURAN Note: Problem: Chronic Pain Goals: 1. Minimize further functional decline 2. Maximize quality of life 3. Control pain Strategies: - Activity/exercise program recommendation - Conservative stepwise pain medicine strategy with multi-disciplinary approach - Recommend healthy lifestyle strategies and compensatory methods as needed Reduce the likelihood of falling Lifestyle No Andrew Syl Carey, DURAN Note: Below are four things you can do to prevent falls: Begin an exercise program to improve your leg strength & balance Ask your doctor or pharmacist to review your medicines Get annual eye check-ups & update your eyeglasses Make your home safer by: Removing clutter & tripping hazards Putting railings on all stairs & adding grab bars in the bathroom Having good lighting, especially on stairs Contact your local community or [facility] for information on exercise, fall prevention programs, or options for improving home safety. Procedures Procedure Name Priority Date/Time Associated Diagnosis Comments XR KNEE RIGHT 3 VIEWS Schedule Routine, Read Routine (OP Routine) 03/17/2025 9:59 AM CDT Right knee pain, unspecified chronicity SCREENING MAMMOGRAM BILATERAL W ANDRADE Schedule Routine, Read Routine (OP Routine) 09/22/2022 8:09 AM TALENT RECRUITER Pre-operative clearance COLONOSCOPY REPORT 02/24/2013 SERUM HEPATITIS PANEL Routine 02/03/2013 3:30 PM CDT from Last 3 Months or Most Recently Relevant to Health Maintenance Results * XR Knee Right 3 Views (03/17/2025 9:59 AM CDT) Anatomical Region Laterality Modality Lower Extremities, Knee Right Computed Radiography 03/17/2025 10:4 9 AM CDT Impressions 03/17/2025 10:49 AM CDT No acute abnormality. Electronically signed by: Oscar Woodard M.D. Narrative 03/17/2025 10:49 AM CDT EXAMINATION: XR KNEE RIGHT 3 VIEWS DATE: 03/17/2025 9:45 AM HISTORY: M25.561 FINDINGS: There is no fracture, dislocation or abnormal bone production or destruction. Procedure Note Oscar Woodard MD - 03/17/2025 EXAMINATION: XR KNEE RIGHT 3 VIEWS DATE: 03/17/2025 9:45 AM HISTORY: M25.561 FINDINGS: There is no fracture, dislocation or abnormal bone production or destruction. IMPRESSION: No acute abnormality. Electronically signed by: Oscar Woodard M.D. Meño Redman MD IMG XR PROCEDURES Final R esult * Screening Mammogram Bilateral W Andrade (09/22/2022 8:09 AM TALENT RECRUITER) Anatomical Region Laterality Modality Breast Bilateral Mammography 09/22/2022 8:20 AM TALENT RECRUITER Impressions 09/22/2022 8:20 AM TALENT RECRUITER No evidence of malignancy in either breast. FINAL ASSESSMENT: BI-RADS Category 1: Negative. RECOMMENDATION: Recommend return for annual screening mammogram in 12 months. Electronically signed by: Estephanie Teixeira M.D. Narrative 09/22/2022 8:20 AM TALENT RECRUITER EXAMINATION: BILATERAL SCREENING MAMMOGRAM COMPARISON: Multiple prior studies, most recently 08/25/2021 and dating back to 07/28/2013. TECHNIQUE: Full-field 2D and digital breast tomosynthesis (DBT) images were obtained. CAD was utilized. BREAST PARENCHYMAL COMPOSITION: There are scattered areas of fibroglandular density. FINDINGS: There is no suspicious mass, calcification, or distortion in either breast. There has been no significant interval change from the prior study. Priyank Mendoza MD IMG MAMMO PROCEDURES Final Resul t * COLONOSCOPY REPORT (02/24/2013) Anatomical Region Laterality Modality Other Narrative 02/24/2013 Ordered by an unspecified provider. Historical Provider GI PROCEDURE ORDERABLES F inal Result * Serum Hepatitis panel (02/03/2013 3:30 PM CDT) HBV surface ag Negative Negative HISTO RICAL RESULTS HBV core ab, IgM Negative Negative HISTORICAL RESULTS HCV ab Negative Negative HISTORICAL RESULTS HAV ab, IgM Negative Negative HISTORIC AL RESULTS Serum 02/03/2013 3:30 PM CDT Frankie Kern MD LAB BLOOD ORDERABLES Final Re sult HISTORICAL RESULTS from Last 3 Months or Most Recently Relevant to Health Maintenance Insurance [employer]IG[employer] [facility] [employer] Address: [facility] [address] [place] [address] [employer] Address: [facility] [id number] [id number] Advance Directives For more information, please contact: [phone] * Full Code (Latest Code Status on File) Date Activated Date Inactivated Comments 10/06/2018 9:44 PM 10/07/2018 6:29 PM Care Teams Swatcher Relationship Specialty Start Date End Date Meño Redman MD PCP - General 06/24/19 Meño Redman MD Referring Physician Family Medicine 10/05/20
--- OUTSIDE RECORDS SUMMARY | 2025-04-22 00:21 | XMS_ITS | Referral Summary ---
Author Organization [facility] Address [address] [place] [address] Care Team Providers Care Supervisor Baking Name Role Phone Meño Redman MD Primary Care Provider [phone] Meño Redman MD Unavailable [phone] Encounters Date Type Department Care Team Description 03/17/2025 9:45 AM CDT - 03/17/2025 11:59 PM CDT Hospital Encounter [facility] [address] [place] [address] Right knee pain, unspecified chronicity Discharge Disposition: Discharge to home or self care from Last 3 Months Allergies Active Allergy Reactions Criticality Noted Date [...] (three) times a day 90 capsule 11 Active Active Problems Problem Noted Date Diagnosed Date RUQ pain 10/07/2018 Nausea and vomiting 10/07/2018 Common migraine with intractable migraine 2013 Overview (01/18/2017): COMN MGRN W NTRC MGR STD Hypothyroidism 02/28/2014 Overview (01/19/2017): HYPOTHYROIDISM NOS Immunizations Immunization Administration Dates Next Due Influenza, Unspecified 08/15/2020 Social History Tobacco Use Types Packs/Day Years [...] on file Legal Sex Female 11:59 PM DE ICER ELEMENT WINDER Gender Identity Female 11/18/2020 10:29 PM DE ICER ELEMENT WINDER Sexual Orientation Not on file Last Filed Vital Signs Vital Sign Reading Time Taken Comments Blood Pressure 113/66 11/19/2020 3:19 PM DE ICER ELEMENT WINDER Pulse 84 11/19/2020 3:19 PM DE ICER ELEMENT WINDER Temperature 36.6 C (97.8 F) 11/19/2020 1:09 PM DE ICER ELEMENT WINDER Respiratory Rate 18 11/19/2020 3:19 PM DE ICER ELEMENT WINDER Oxygen Saturation 100% 11/19/2020 3:19 PM DE ICER ELEMENT WINDER Inhaled Oxygen Concentration - - Weight 87.1 kg (192 lb) 11/19/2020 1:09 PM DE ICER ELEMENT WINDER Height 162.6 cm (5' 4) 11/19/2020 1:09 PM DE ICER ELEMENT WINDER Body Mass Index 32.96 11/19/2020 1:09 PM DE ICER ELEMENT WINDER Plan of Treatment Not on file Goals Goal Patient Goal Type Associated Problems Recent Progress Patient-Stated? Author CCM Chronic Pain Care Plan Chronic Care Management Syl Carlson, RN Note: Problem: Chronic Pain Goals: 1. Minimize further functional decline 2. Maximize quality of life 3. Control pain Strategies: - Activity/exercise program recommendation - Conservative stepwise pain medicine strategy with multi-disciplinary approach - Recommend healthy lifestyle strategies and compensatory methods as needed Reduce the likelihood of falling Lifestyle No Syl Morales, RN Note: Below are four things you can [...] on stairs Contact your local community or [facility] for information on exercise, fall prevention programs, or options for improving home safety. Procedures Procedure Name Priority Date/Time Associated Diagnosis Comments XR KNEE RIGHT 3 VIEWS Schedule Routine, Read Routine (OP Routine) 03/17/2025 9:59 AM CDT Right knee pain, unspecified chronicity SCREENING MAMMOGRAM BILATERAL W ANDRADE Schedule Routine, Read Routine (OP Routine) 09/22/2022 8:09 AM DE ICER ELEMENT WINDER Pre-operative clearance COLONOSCOPY REPORT 02/24/2013 SERUM HEPATITIS [...] Mammogram Bilateral W Andrade (09/22/2022 8:09 AM DE ICER ELEMENT WINDER) Anatomical Region Laterality Modality Breast Bilateral Mammography 09/22/2022 8:20 AM DE ICER ELEMENT WINDER Impressions 09/22/2022 8:20 AM DE ICER ELEMENT WINDER No evidence of malignancy in either breast. FINAL ASSESSMENT: BI-RADS Category 1: Negative. RECOMMENDATION: Recommend return for annual screening mammogram in 12 months. Electronically signed by: Estephanie Teixeira M.D. Narrative 09/22/2022 8:20 AM DE ICER ELEMENT WINDER EXAMINATION: BILATERAL SCREENING MAMMOGRAM COMPARISON: Multiple prior [...] to Health Maintenance Insurance CIGNA C[employer]NA [employer] [place] Address: [facility] [id number] [place] [address] CIG Advance Directives For more information, please contact: [phone] * Full Code (Latest Code Status on File) Date Activated Date Inactivated Comments 10/06/2018 9:44 PM 10/07/2018 6:29 PM Care Teams Supervisor Baking Relationship Specialty Start Date End Date Meño Redman MD PCP - General 06/24/19 Meño Redman MD Referring Physician Family Medicine 10/05/20
--- OUTSIDE RECORDS SUMMARY | 2025-04-22 00:21 | XMS_ITS | Encounter Summary ---
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 Author CCM Chronic Pain Care Plan Chronic Care Management No Syl Morales, RN Note: Problem: Chronic Pain Goals: 1. Minimize further functional decline 2. Maximize quality of life 3. Control pain Strategies: - Activity/exercise program recommendation - Conservative stepwise pain medicine strategy with multi-disciplinary approach - Recommend healthy lifestyle strategies and compensatory methods as needed Reduce the likelihood of falling Lifestyle Syl Carlson, RN Note: Below are four things you [...] on stairs Contact your local community or [facility] for information on exercise, fall prevention programs, or options for improving home safety. documented as of this encounter Visit Diagnoses Not on filedocumented in this encounter Care Teams Loss Control Engineer Relationship Specialty Start Date End Date Meño Redman MD PCP - General 06/24/19 Meño Redman MD Referring Physician Family Medicine 10/05/20 documented as of this encounter
--- NOTE | 2025-04-22 06:48 | WPDHPUPDATE1 ---
History and Physical Update Update Date/Time: 04/22/25 06:48 History and Physical has been reviewed, including an updated exam of the patient. There are NO changes in the patient's condition. Risks, benefits, and alternatives have been discussed and questions answered. Patient agrees to proceed with procedure.
[2025-04-22] MEDS: ACETAMINOPHEN 500 MG TABLET 1000 MG PO (07:42)
[2025-04-22] MEDS: LACTATED RINGERS 1,000 ML 30 ML IV CONT ×2 (07:45→09:54)
--- NOTE | 2025-04-22 07:47 | P.PNAN_ITS ---
Anes - Initial Pre Proc Eval Procedure: Operation Date: 04/22/25 08:30 Proposed Procedures p Right Knee Arthroscopy, Partial Meniscectomy, Proceed As Indicated - Franki Mann MD Date/Time: 04/22/25 07:47 Surgeon: Franki Mann MD Pre Op Diagnosis: right knee medial meniscus tear Patient Data Age: 54 Gender: F Height: 1.63 m Weight: 70.45 kg Allergies Allergy/AdvReac Type Severity Reaction Status Date / Time Sulfa (Sulfonamide Allergy Mild Rash Verified 04/22/25 06:57 Antibiotics) morphine Allergy Unknown Difficulty Verified 04/22/25 06:57 Breathing sulfite Allergy Unknown Skin Verified 04/22/25 06:57 Reaction codeine AdvReac Severe Nausea Verified 04/22/25 07:26 erythromycin base AdvReac Mild nausea Verified 04/22/25 07:26 Home Medications ?Medication ?Instructions ?Recorded ?Confirmed ?Type bupropion HCl 300 mg 24 hr tablet, 300 mg PO QAM #90 tabs 11/02/23 04/22/25 Rx extended release (Wellbutrin XL) sumatriptan succinate 25 mg tablet See Rx Instructions PO .COMPLEX #9 11/02/23 04/22/25 Rx (Imitrex) tabs sumatriptan succinate 4 mg/0.5 mL 4 mg (0.5 mL) subcut ONCE #14 mL 03/17/24 04/22/25 Rx subcutaneous cartridge (refill) sumatriptan succinate 4 mg/0.5 mL 4 mg (0.5 mL) subcut ONCE #1 mL 03/17/24 04/21/25 Rx subcutaneous pen injector ubrogepant 100 mg tablet (Ubrelvy) 100 mg PO ONCE #14 tabs 03/17/24 04/21/25 Rx cetirizine 10 mg tablet (Zyrtec) 10 mg PO DAILY PRN allergy symptoms 10/22/24 04/21/25 History estradiol 1 mg tablet 1 mg PO DAILY #30 tabs 01/30/25 04/22/25 Rx escitalopram oxalate 10 mg tablet 10 mg PO DAILY #90 tabs 02/24/25 04/22/25 Rx levothyroxine 200 mcg tablet 200 mcg PO DAILY #90 tabs 02/24/25 04/22/25 Rx levothyroxine 25 mcg tablet 25 mcg PO DAILY #90 tabs 02/24/25 04/22/25 Rx alprazolam 0.25 mg tablet 0.25 mg PO TID PRN anxiety #30 tabs 04/10/25 04/22/25 Rx semaglutide 0.25 mg or 0.5 mg (2 0.5 mg subcut WEEKLY 04/14/25 04/21/25 History mg/1.5 mL) subcutaneous pen injector (Ozempic) valacyclovir 1 gram tablet 1,000 mg PO Q8H PRN SORES #21 tabs 04/15/25 04/22/25 Rx (Valtrex) Patient hx anesthesia problems: none Family hx anesthesia problems: none Results Review: All pre-operative results and documents have been reviewed as part of the pre- operative evaluation. [facility] Past Medical History Medical History (Updated 04/22/25 @ 07:47 by Frankie Mcconnell MD) Hypothyroidism (acquired) COVID-19 Lateral epicondylitis of right elbow detention current use of therapeutic drug Surgical History Surgical History (Updated 04/22/25 @ 07:47 by Frankie Mcconnell MD) History of section Hx of breast reduction, elective Family History Family History Father TIA (transient ischemic attack) Grandparent DVT (deep venous thrombosis) Social History Social History (Updated 04/22/25 @ 07:48 by Frankie Mcconnell MD) Smoking packs per day: 1 Smoking cigarettes per day: 20.0 Years smoked: 12 Smoking pack-years: 12.00 Smoking status: Former smoker Tobacco type: cigarettes Second hand tobacco smoke exposure: No Smoking end date: 10/15/18 Alcohol intake: current Alcohol use details: SOCIALLY (ONCE EVERY FEW MONTHS) Substance use: never Substance use type: does not use Do You Feel Safe in your Home?: Yes Lack of Transportation: No Lack of Food: Never True Current Housing: I Have Housing Concerned About Future Housing: No Difficulty Paying Gas/Electric Bills: No Difficulty Paying for Meds: No Currently Unemployed: No Education: Associate Degree Difficulty w/ Childcare or Family Care: No Living arrangements: with family Additional living arrangements comments: Gender identity (if verbalized by the patient): Female Spiritual care concerns: No Anes - Eval Final PreProcedure Day of Procedure 04/22/25 07:47 Patient weight: overweight Heart: regular rate and rhythm Lungs: clear to auscultation Airway: Mallampati scale class II Neurological: alert and oriented Last oral intake: >/= 8 hours ASA classification: II Emergent: no Anesthetic plan: proceed Anesthesia type and monitoring: general LMA and standard monitoring Results Review: All pre-operative results and documents have been reviewed as part of the pre- operative evaluation. Informed Consent: The patient's anesthetic plan and its attendant risks and benefits were discussed with the patient/family/POA. Questions were solicited and answers provided to the satisfaction of the patient/family/POA.
[2025-04-22] MEDS: KETOROLAC 15 MG/ML VIAL (*BKC) IV PUSH (07:48)
[2025-04-22] MEDS: ceFAZolin 2 GM in SODIUM CHLORIDE 0.9% IV 50 ML 100 ML IVPB (08:30)
[2025-04-22] MEDS: LIDOCAINE 1% LOCAL INJ 10 ML VIAL INFILTRATE (09:00)
--- NOTE | 2025-04-22 09:02 | W.PM.PROC2 ---
Procedure Note - Detailed Date of Procedure 04/22/25 Pre-op Diagnosis Right knee medial meniscus tear Post-op Diagnosis Same Procedure Performed RIGHT knee arthroscopy with partial meniscectomy Surgeon Franki Mann MD Anesthesia General Indications Pain, Locking and Catching Description of Procedure Patient brought to operating room #7. An anesthetic was administered. The knee was sterilely prepped and draped in the usual manner. Standard portals were used. Superior medial portal was used for the outflow cannula, inferior lateral portal was used for the scope, inferior medial portal was used for the instruments. Arthroscopy was performed, the patellar femoral joint showed degenerative changes. The medial compartment showed a complex tear. She had grade 3 changes in the medial compartment with near [id number] and some areas. The lateral compartment showed fraying. The ACL was intact. Using baskets and perri the meniscal tear was trimmed back to a stable base so the nothing further could be pulled into the joint. Any loose or delaminated fragments were gently trimmed to a stable base. She had a good size plica which is debrided as well. At this point the instruments were withdrawn, sutures placed and patient left the operating room in satisfactory condition. Estimated Blood Loss 20 Drains No Packing No Pathology None sent Complications No immediate complications Condition Stable Disposition PACU [facility] Billing Surgery - Charge Forward: Surgery Billing ([id number] MMT)
[2025-04-22] MEDS: ONDANSETRON INJ 4 MG/2 ML VIAL IV PUSH (09:21)
[2025-04-22] MEDS: fentaNYL CITRATE INJ (*CRX) 100 MCG/2 ML VIAL 25 MCG IV PUSH ×7 (09:31→10:02)
[2025-04-22] MEDS: SCOPOLAMINE 1 MG PATCH 1 PATCH TRANSDERM (09:32)
[2025-04-22] MEDS: HYDROcodone/acetaminophen (*CRX) 5-325 MG TABLET 1 TAB PO (10:55)
== END 2025-04-22 11:45 | disposition home or self-care (01) ==
PROVIDERS: PCP Family Medicine; Visit Provider Orthopaedic Surgery
PROC: (CPT 29870; principal; 2025-04-22 08:30)
DX: S83.231A Complex tear of medial meniscus, current injury, right knee, initial encounter (principal); M94.261 Chondromalacia, right knee; M25.461 Effusion, right knee; X58.XXXA Exposure to other specified factors, initial encounter; Z79.85 Long-term (current) use of injectable non-insulin antidiabetic drugs; Z79.899 Other long term (current) drug therapy; Z98.890 Other specified postprocedural states; Z87.891 Personal history of nicotine dependence; Z82.49 Family history of ischemic heart disease and other diseases of the circulatory system
CPT/HCPCS: 29881; J0690; A9270; J1100; J1200; J1885; J2003; J2250; J2405; J2704; J3010; J7120

== ENCOUNTER 2025-05-06 10:34 | Outpatient (CLI) | payer OTHER, SELFPAY ==
--- NOTE | ~2025-05-06 | US_ITS ---
EXAMINATION:US venous doppler LE RT INDICATION:Right leg swelling TECHNIQUE: Multiple grayscale, color flow and Doppler images of the right lower extremity deep venous systems were obtained and reviewed. COMPARISON:No prior studies for comparison. FINDINGS: The common femoral, superficial femoral and popliteal veins demonstrate normal respiratory variation, augmentation and compressibility. Color flow is also seen within the posterior tibial, pe roneal, greater saphenous and profunda veins. IMPRESSION: 1: No lower extremity deep venous thrombosis. Reviewed, dictated and finalized at location A.
== END 2025-05-06 10:35 | disposition home or self-care (01) ==
LOC: MICIMG 10:35
PROVIDERS: PCP Family Medicine; Visit Provider Orthopaedic Surgery
DX: M79.604 Pain in right leg (principal); M79.89 Other specified soft tissue disorders
CPT/HCPCS: 93971

== ENCOUNTER 2025-07-27 07:15 | Emergency (ER) | payer OTHER, SELFPAY ==
--- NOTE | ~2025-07-27 | XR_ITS ---
EXAMINATION: XR knee RT 3V DATE: 07/27/2025 08:20 INDICATION: Worsening right knee pain TECHNIQUE: Anteroposterior, oblique and crosstable lateral views of the right knee were obtained COMPARISON: None. FINDINGS: Alignment is normal. No fracture. Mild tricompartmental osteoarthritis with small marginal osteophytes in all 3 compartments and mild joint space narrowing in the medial and patellofemoral compartments. Small enthesophyte at the patellar insertion of the distal quadriceps tendon. No joint effusion/layering lipohemarthrosis. Soft tissues are unremarkable. IMPRESSION: 1. Mild osteoarthritis of the right knee. Reviewed, dictated and finalized at location A.
[2025-07-27 07:23] VITALS: BP 111/75; PULSE 69; RESP 20; TEMP 36.5; O2SAT 98
--- NOTE | 2025-07-27 08:44 | ED.LOWEXIN ---
HPI - Extremity Injury (Lower) General Chief Complaint: Extremity Injury, Lower Stated Complaint: right knee pain Time Seen by Provider: 07/27/25 08:07 Source: patient and family Mode of arrival: ambulatory Limitations: no limitations History of Present Illness HPI Narrative: Patient presents with report of right knee pain. This started approximately 2 weeks ago. No injury or trauma. She did have a history of meniscus surgery with Dr. Mann in April of 2025 for a meniscus tear. She has been taking meloxicam as well as Tylenol and ibuprofen. Ice also seems to help. She is not on anticoagulation. She denies any catching or locking although reports that the knee feels unstable. No paresthesias in her knee although she has been having some intermittent paresthesias in her foot. She had her grand kids over the weekend baby sitting and felt like pain was getting worse. Pain is along the lateral and medial aspect of the knee joint. Her pain is caused her to have difficulty sleeping and she also feels nauseated. She works as a respiratory therapist. Related Data Home Medications ?Medication ?Instructions ?Recorded ?Confirmed ?Last Taken ?Type cetirizine 10 mg tablet (Zyrtec) 10 mg PO DAILY PRN allergy symptoms 10/22/24 05/12/25 Unknown History semaglutide 0.25 mg or 0.5 mg (2 0.5 mg subcut WEEKLY 04/14/25 05/12/25 04/08/25 History mg/1.5 mL) subcutaneous pen injector (Ozempic) Allergies Allergy/AdvReac Type Severity Reaction Status Date / Time Sulfa (Sulfonamide Allergy Mild Rash Verified 07/27/25 07:32 Antibiotics) morphine Allergy Unknown Difficulty Verified 07/27/25 07:32 Breathing sulfite Allergy Unknown Skin Verified 07/27/25 07:32 Reaction codeine AdvReac Severe Nausea Verified 07/27/25 07:32 erythromycin base AdvReac Mild nausea Verified 07/27/25 07:32 COUNTS INCLUDE 234 BEDS AT THE [facility] Past Medical History Medical History (Updated 07/27/25 @ 08:46 by Mirtha Hicks MD) Hypothyroidism (acquired) COVID-19 Lateral epicondylitis of right elbow nursing home current use of therapeutic drug Surgical History Surgical History S/P right knee arthroscopy Dr Mann; w/ partial meniscectomy History of section Hx of breast reduction, elective Family History Family History Father TIA (transient ischemic attack) Grandparent DVT (deep venous thrombosis) Social History Social History Smoking packs per day: 1 Smoking cigarettes per day: 20.0 Years smoked: 12 Smoking pack-years: 12.00 Smoking status: Former smoker Tobacco type: cigarettes Second hand tobacco smoke exposure: No Smoking end date: 10/15/18 Alcohol intake: current Alcohol use details: SOCIALLY (ONCE EVERY FEW MONTHS) Substance use: never Substance use type: does not use Do You Feel Safe in your Home?: Yes Lack of Transportation: No Lack of Food: Never True Current Housing: I Have Housing Concerned About Future Housing: No Difficulty Paying Gas/Electric Bills: No Difficulty Paying for Meds: No Currently Unemployed: No Education: Associate Degree Difficulty w/ Childcare or Family Care: No Living arrangements: with family Additional living arrangements comments: Occupation/Education: occupation 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 HEAD: Normocephalic, atraumatic. EYES: Non injected, non icteric ENT: Nares clear, no rhinorrhea or epistaxis. Gross auditory acuity intact. NECK: Supple. No meningismus. CHEST: Speaking in full sentences. No respiratory distress. HEART: Regular rate and rhythm. . ABDOMEN: Soft, nondistended. No rigidity or guarding. Not peritoneal EXTREMITIES: Normal range of motion. No lower extremity edema. No warmth or significant erythema around right knee joint. Patient reports pain at the superior lateral aspect of the right knee joint as well as the inferior medial aspect but without distinct tenderness to palpation. No popping or clicking. Patient demonstrates full range of motion at the knee joint. 5/5 strength with right ankle dorsiflexion, plantar flexion, eversion and inversion. No anterior or posterior laxity. SKIN: Warm, dry, no rash. No overlying skin changes. No ecchymosis. NEURO: No focal deficits. Alert and oriented. Answering questions. Following commands. Normal speech without aphasia or dysarthria. PSYCH: Normal mood and affect. Becomes tearful after initial examination. Course Vital Signs Vital signs: Vital Signs Temperature 97.7 F 07/27/25 07:23 Pulse Rate 69 07/27/25 07:23 Respiratory Rate 20 07/27/25 07:23 Blood Pressure 111/75 07/27/25 07:23 Pulse Oximetry 98 07/27/25 07:23 Oxygen Delivery Room Air 07/27/25 07:23 Temperature 97.7 F 07/27/25 07:23 Pulse Rate 69 07/27/25 07:23 Respiratory Rate 20 07/27/25 07:23 Blood Pressure 111/75 07/27/25 07:23 Pulse Oximetry 98 07/27/25 07:23 Oxygen Delivery Room Air 07/27/25 07:23 MDM - Extremity Injury (Lower) MDM Narrative Medical decision making narrative: Patient presents with right knee pain. History of surgical intervention with orthopedic surgery (R knee arthrocentesis 04/22/25) for meniscus injury/tear. No acute trauma. In the emergency department they are afebrile with vital signs within normal limits. Analgesic medication provided in the ED> I did encourage that she tried to call Dr. Mann's clinic today to set up follow-up appointment. Also provided the name and contact information for on-call orthopedic surgeon for today in case there are complications/issues with re-establishing care. Provided Rx for OTC analgesic medications and advised to take combination and follow up as, if not improving, may require injections/alternative pain meds, physical therapy, advanced imaging, etc. Differential Diagnosis Differential diagnosis: Likely acute internal derangement of knee and other (considered septic joint ;fracture/dislocation) Imaging Data Radiologist's impression: Impressions Knee X-Ray 07/27/25 08:25 IMPRESSION: 1. Mild osteoarthritis of the right knee. Discharge Plan Discharge Clinical Impression: Knee pain, right Osteoarthritis of right knee Qualifiers: Osteoarthritis type: unspecified Qualified Code(s): M17.11 - Unilateral primary osteoarthritis, right knee Patient Disposition: Home Condition: Stable Instructions: Antibiotic Form, Osteoarthritis (DC), Knee Pain (ED), Arthralgia (ED), P.R.I.C.E. Treatment (ED) Additional Instructions: Acetaminophen/Tylenol (maximum 4000 mg per day) is safe to take with NSAIDs (ibuprofen/Motrin) for pain relief. Follow-up with Dr Mann or, if he is unavailable for follow up, the name of an alternative orthopedic surgeon is listed below. If not improving, it may be recommended that you have alternative pain medication including but not limited to injections, physical therapy, advanced imaging such as MRI, etc.. Return to the emergency department any new or worsening symptoms. Patient Language: Serbian Prescriptions: New ibuprofen 600 mg tablet 600 mg PO TID PRN (Reason: pain) Qty: 30 0RF acetaminophen 500 mg capsule 1,000 mg PO Q6H PRN (Reason: pain) Qty: 30 0RF No Action sumatriptan succinate [Imitrex] 25 mg tablet See Rx Instructions PO .COMPLEX Qty: 9 5RF Rx Instructions: take 1 tab at onset of headache; if no relief may repeat 1 tab after at least 2 hrs; max = 4 tabs/24 hr PO cetirizine [Zyrtec] 10 mg tablet 10 mg PO DAILY PRN (Reason: allergy symptoms) Ozempic 0.25 mg or 0.5 mg(2 mg/1.5 mL) pen injector 0.5 mg subcut WEEKLY Patient Comments: PATIENT IS NOT COMPLETELY SURE OF DOSE; DOESN'T TAKE WEEKLY ORDERED, TAKES SPORADICALLY hydrocodone-acetaminophen 5-325 mg tablet 1 tablet PO Q4H PRN (Reason: pain) Qty: 30 0RF sumatriptan succinate 4 mg/0.5 mL pen injector 4 mg subcut ONCE Qty: 1 3RF Rx Instructions: may repeat dose once in 1 hour if not relieved sumatriptan succinate 4 mg/0.5 mL cartridge 4 mg subcut ONCE Qty: 14 2RF Rx Instructions: may repeat dose once in 1 hour if not relieved Ubrelvy 100 mg tablet 100 mg PO ONCE Qty: 14 0RF Rx Instructions: as a single dose; may repeat once in >=2 hours after first dose if needed escitalopram oxalate 10 mg tablet 10 mg PO DAILY Qty: 90 3RF Patient Comments: HS levothyroxine 200 mcg tablet 200 mcg PO DAILY Qty: 90 3RF alprazolam 0.25 mg tablet 0.25 mg PO TID PRN (Reason: anxiety) Qty: 30 1RF valacyclovir [Valtrex] 1 gram tablet 1,000 mg PO Q8H PRN (Reason: SORES) Qty: 21 0RF estradiol 1 mg tablet 1 mg PO DAILY Qty: 30 3RF levothyroxine 25 mcg tablet 25 mcg PO DAILY Qty: 90 1RF Rx Instructions: add to the daily 200mcg for a total of 225mcg. bupropion HCl [Wellbutrin XL] 300 mg tablet extended release 24 hr 300 mg PO QAM Qty: 90 1RF Zepbound 5 mg/0.5 mL solution 5 mg subcut WEEKLY Qty: 2 1RF Follow-up/Referrals: Franki Mann MD [Physician, Orthopedics] Meño Redman MD [Primary Care Provider, Family Practice] Luciano Rosenberg MD [Physician, Orthopedics] Stand Alone Forms: Work/School Release IP Time of Disposition: 09:23
[2025-07-27] MEDS: HYDROcodone/acetaminophen (*CRX) 5-325 MG TABLET 1 TAB PO (09:05)
[2025-07-27] MEDS: ONDANSETRON HCL ODT 4 MG TABLET PO (09:05)
[2025-07-27] MEDS: KETOROLAC 30 MG/ML VIAL (*BKC) 15 MG IM (09:05)
--- OUTSIDE RECORDS SUMMARY | 2025-07-27 09:40 | XMS_ITS | Clinical Summary ---
Author Organization [facility] [employer] Address [address] [place] [address] Care Team Providers Care Grease Cup Filler Name Role Phone Meño Redman MD Primary Care Provider [phone] Source Comments [facility] [employer],non-owned Affiliates and Associated Physician Practices is amultiple site organization consisting of ambulatory clinics and hospital sitesin [place], [place], [place] and [place]. This disclosure is being madepursuant to the Care Everywhere program and may not contain all information available regarding this patient. 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
--- OUTSIDE RECORDS SUMMARY | 2025-07-27 09:41 | XMS_ITS | Encounter Summary ---
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 documented as of this encounter Visit Diagnoses Not on filedocumented in this encounter Care Teams Moss Gatherer Relationship Specialty Start Date End Date Meño Redman MD PCP - General 06/24/19 Meño Redman MD Referring Physician Family Medicine 10/05/20 documented as of this encounter
--- OUTSIDE RECORDS SUMMARY | 2025-07-27 09:41 | XMS_ITS | Clinical Summary ---
Author Organization [facility] Address [address] [place] [address] Care Team Providers Care Amf Mechanic Name Role Phone Meño Redman MD Primary Care Provider [phone] Meño Redman MD Unavailable [phone] Allergies Active Allergy Reactions Criticality Noted Date [...] on file Legal Sex Female 11:59 PM CERTIFIED COATINGS INSPECTOR Gender Identity Female 11/18/2020 10:29 PM CERTIFIED COATINGS INSPECTOR Sexual Orientation Not on file Obstetrics History Para Term AB IAB SAB Ectopic Multiple Livin g Live Births 5 4 4 Date Outcome GA Total Labor Labor/2nd/3rd Weight Sex Type Anes PTL Solange A1 A5 Name Clin Term Term Term Term Last Filed Vital Signs Vital Sign Reading Time Taken Comments Blood Pressure 113/66 11/19/2020 3:19 PM CERTIFIED COATINGS INSPECTOR Pulse 84 11/19/2020 3:19 PM CERTIFIED COATINGS INSPECTOR Temperature 36.6 C (97.8 F) 11/19/2020 1:09 PM CERTIFIED COATINGS INSPECTOR Respiratory Rate 18 11/19/2020 3:19 PM CERTIFIED COATINGS INSPECTOR Oxygen Saturation 100% 11/19/2020 3:19 PM CERTIFIED COATINGS INSPECTOR Inhaled Oxygen Concentration - - Weight 87.1 kg (192 lb) 11/19/2020 1:09 PM CERTIFIED COATINGS INSPECTOR Height 162.6 cm (5' 4) 11/19/2020 1:09 PM CERTIFIED COATINGS INSPECTOR Body Mass Index 32.96 11/19/2020 1:09 PM CERTIFIED COATINGS INSPECTOR Plan of Treatment Health Maintenance Due Date Last Done Comments Depression Screening 1972 DTaP/Tdap/Td Vaccine (1 - Tdap) 1983 Hepatitis B Screening 1990 Regular Well Visit/Exam 18-64 1990 Zoster Vaccine (1 of 2) 2022 Colon Cancer Screening-Colonoscopy 02/24/2023 02/24/2013 Breast Cancer Screening-Mammogram 09/22/2023 09/22/2022, 08/25/2021, 06/24/2019, Additional history exists Influenza Vaccine (#1) 2025 08/15/2020 Hepatitis C Screening Completed 02/03/2013, 013 Pneumococcal vaccine <65 Aged Out No longer eligible based on patient's age to complete this topic Goals Goal Patient Goal Type Associated Problems Recent Progress Patient-Stated? Author CCM Chronic Pain Care Plan Chronic Care Management No Syl Morales, DURAN Note: Problem: Chronic Pain Goals: 1. Minimize further functional decline 2. Maximize quality of life 3. Control pain Strategies: - Activity/exercise program recommendation - Conservative stepwise pain medicine strategy with multi-disciplinary approach - Recommend healthy lifestyle strategies and compensatory methods as needed Reduce the likelihood of falling Lifestyle No Syl Morales, DURAN Note: Below are four things you [...] on stairs Contact your local community or senior center for information on exercise, fall prevention programs, or options for improving home safety. Procedures Procedure Name Priority Date/Time Associated Diagnosis Comments SCREENING MAMMOGRAM BILATERAL W ANDRADE Schedule Routine, Read Routine (OP Routine) 09/22/2022 8:09 AM CERTIFIED COATINGS INSPECTOR Pre-operative clearance COLONOSCOPY REPORT 02/24/2013 SERUM HEPATITIS PANEL Routine 02/03/2013 3:30 PM CDT from Last 3 Months or Most Recently Relevant to Health Maintenance Results * Screening Mammogram Bilateral W Andrade (09/22/2022 8:09 AM CERTIFIED COATINGS INSPECTOR) Anatomical Region Laterality Modality Breast Bilateral Mammography 09/22/2022 8:20 AM CERTIFIED COATINGS INSPECTOR Impressions 09/22/2022 8:20 AM CERTIFIED COATINGS INSPECTOR No evidence of malignancy in either breast. FINAL ASSESSMENT: BI-RADS Category 1: Negative. RECOMMENDATION: Recommend return for annual screening mammogram in 12 months. Electronically signed by: Estephanie Teixeira M.D. Narrative 09/22/2022 8:20 AM CERTIFIED COATINGS INSPECTOR EXAMINATION: BILATERAL SCREENING MAMMOGRAM COMPARISON: Multiple prior [...] to Health Maintenance Insurance [employer] Address: [facility] [id number] [place] [address] [facility] [employer] Address: [facility] [address] [place] [address] Advance Directives For more information, please contact: [phone] * Full Code (Latest Code Status on File) Date Activated Date Inactivated Comments 10/06/2018 9:44 PM 10/07/2018 6:29 PM Care Teams Amf Mechanic Relationship Specialty Start Date End Date Meño Redman MD PCP - General 06/24/19 Meño Redman MD Referring Physician Family Medicine 10/05/20
== END 2025-07-27 10:07 | disposition home or self-care (01) ==
PROVIDERS: Emergency Provider Student in an Organized Health Care Education/Training Program; PCP Family Medicine
DX: M17.11 Unilateral primary osteoarthritis, right knee (principal); M25.561 Pain in right knee; E03.9 Hypothyroidism, unspecified
CPT/HCPCS: 73562; 96372; 99283; A9270; J1885